=== PATIENT | male | born 1955 | race Caucasian/White ===

== ENCOUNTER 2017-09-18 22:43 | Emergency (ER) | payer BC ==
[~2017-09-18] VITALS: Ht 177.8 cm; Wt 91.4 kg
[2017-09-18 22:47] VITALS: BP 167/107
[2017-09-18] MEDS ORDERED: LIDOCAINE-MPF 1%, 5ML ONE (23:09)
[2017-09-19] MEDS ORDERED: LIDOCAINE-MPF 1%, 5ML INFIL ONE
== END 2017-09-19 00:59 | disposition home or self-care (01) ==
LOC: ED 23:59
DX: L02.611 Cutaneous abscess of right foot (principal); I10 Essential (primary) hypertension
CPT/HCPCS: 99284